=== PATIENT | female | born 1995 | race Caucasian/White ===

== ENCOUNTER 2017-05-21 16:31 | Emergency (ER) | payer SELFPAY ==
[~2017-05-21] VITALS: Ht 167.6 cm; Wt 126.4 kg
[~2017-05-21 16:31] MED LIST: ALPR0.25 PO
[2017-05-21 17:40] VITALS: BP 140/86
== END 2017-05-21 17:54 | disposition home or self-care (01) ==
LOC: ED 17:48
DX: S39.012A Strain of muscle, fascia and tendon of lower back, initial encounter (principal); J45.909 Unspecified asthma, uncomplicated; X58.XXXA Exposure to other specified factors, initial encounter; Y93.89 Activity, other specified; Y92.89 Other specified places as the place of occurrence of the external cause; Y99.8 Other external cause status
CPT/HCPCS: 72110; 99284

== ENCOUNTER 2021-03-04 17:09 | Emergency (ER) | payer MEDICAID ==
[~2021-03-04] VITALS: Ht 165.1 cm; Wt 80.0 kg
[2021-03-04 17:27] VITALS: BP 130/72
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
== END 2021-03-04 18:01 | disposition home or self-care (01) ==
LOC: ED 17:39
DX: R06.02 Shortness of breath (principal); R00.0 Tachycardia, unspecified; R06.00 Dyspnea, unspecified; R07.89 Other chest pain; R10.9 Unspecified abdominal pain; J45.909 Unspecified asthma, uncomplicated
CPT/HCPCS: 93005; 99283